=== PATIENT | female | born 1965 | race Caucasian/White ===

== ENCOUNTER → 2023-10-25 16:16 | Outpatient (REF) | payer OTHER, SELFPAY | LOC: WDC 16:16 | PROVIDERS: ATTENDING PHYSICIAN Obstetrics & Gynecology; FAMILY PHYSICIAN Internal Medicine Geriatric Medicine | DX: Z12.31 Encounter for screening mammogram for malignant neoplasm of breast (principal) | CPT/HCPCS: 77063; 77067 ==

== ENCOUNTER 2023-12-15 06:08 | Day surgery (SDC) | payer OTHER, SELFPAY ==
[2023-12-15 06:47] VITALS: BMI 38.9
[2023-12-15 06:51] VITALS: BP 142/82
--- NOTE | 2023-12-15 06:56 | HP.FOC2 ---
Focused History & Physical
Chief Complaint
HPI:
Chief Complaint: Left lower quadrant subcutaneous lipoma
HPI / Indication for Planned Procedure: Patient is a 58-year-old female seen in outpatient surgical evaluation secondary to palpable mass left lower quadrant subcutaneous abdominal wall. Examination consistent with 67 cm soft lipomatous mass. She
presents today for scheduled surgical excision
Relevant Past Medical History: Other (Hemangioma of the liver, hyperlipidemia, lactose intolerance, sleep apnea, history of kidney stones, Crohn's disease, mitral regurgitation, pulmonary stenosis, history of glucose intolerance)
Relevant Social History: Negative
Relevant Family History: Negative
Relevant Past Surgical History: Positive for (, D&C)
Review of Systems
Review of Pertinent Systems: All Systems Negative
Medication
See Medication form for detailed medications: Yes
Medication List (including Herbals & OTC):
ibuprofen 600 mg tablet 600 mg PO Q6HPRN PRN pain #20 tabs 08/10/20
ezetimibe 10 mg tablet (Zetia) 10 mg PO DAILY 12/08/23
Medications Reviewed: Yes
Allergies and Reactions
Patient has Allergies: Yes
Noted Allergies and Reactions:
Allergy/AdvReac Type Severity Reaction Status Date / Time
adhesive tape Allergy Rash Verified 12/15/23 06:45
atorvastatin calcium Allergy Rash Verified 12/15/23 06:45
[From Lipitor]
Pertinent Physical Exam
All Other Systems: Negative
Head/Neck: Normal
Lungs: Normal
Heart: Normal
Abdomen: Other (Left lower quadrant soft lipomatous mass like area approximately 4 x 7 cm)
Extremities: Normal
Neurological: Normal
Diagnosis / Assessment
58-year-old female with presumed left lower quadrant subcutaneous lipomatous mass
Plan / Procedure
Excision left lower quadrant subcutaneous lipoma
Anesthesia/Sedation to be done by Anesthesia Provider: Yes
--- NOTE | 2023-12-15 06:59 | W.SUR.PREOP ---
Pre-Operative Surgical Note
-
I have examined this patient prior to the performance of the scheduled procedure.
The patient's condition is unchanged from the time of the current History and
Physical and the patient is able to undergo the scheduled procedure.
[2023-12-15] MEDS: TYLENOL 1000 MG PO (07:14)
[2023-12-15] MEDS: NORMOSOL-R/PLASMALYTE-A 1000 IV (07:14)
[2023-12-15 08:00] VITALS: BP 108/60
--- NOTE | 2023-12-15 08:06 | W.IMMPOSTOP ---
Addendum entered and electronically signed by Jorge Antoine MD 12/15/23 08:10:
#[id number]
Original Note:
Surgical Immed Post Op Note
-
Primary Surgeon: Elina
Assisting Surgeon: Nafisa Renae PA-c
Pre-op Diagnosis: Left lower quadrant abdominal subcutaneous lipoma
Post-op Diagnosis: Left lower quadrant abdominal subcutaneous lipoma, 7 cm
Procedure Performed: Excision left lower quadrant subcutaneous abdominal lipoma
Anesthesia Type: MAC +1% lido/0.25% Marcaine
Specimen / Cultures: Lipoma
Estimated Blood Loss: 4 mL
Complications: None immediate
Operative Findings: Lobulated but well encapsulated subcutaneous lipomatous mass 7 x 4 cm consistent with preoperative ultrasound imaging. Excised in its entirety.
[2023-12-15 08:15] VITALS: BP 105/83
[2023-12-15 08:30] VITALS: BP 108/65
== END 2023-12-15 08:50 | disposition home or self-care (01) ==
LOC: SDS 06:08
PROVIDERS: ATTENDING PHYSICIAN Surgery
DX: D17.1 Benign lipomatous neoplasm of skin and subcutaneous tissue of trunk (principal)
CPT/HCPCS: 22903; 12032; 88304

== ENCOUNTER → 2023-12-21 12:47 | Outpatient (REF) | payer OTHER, SELFPAY | LOC: WDC 12:47 | PROVIDERS: ATTENDING PHYSICIAN Nurse Practitioner Obstetrics & Gynecology; FAMILY PHYSICIAN Internal Medicine Geriatric Medicine | DX: Z12.31 Encounter for screening mammogram for malignant neoplasm of breast (principal) | CPT/HCPCS: 76641 ==

== ENCOUNTER → 2023-12-25 07:00 | Outpatient (REF) | payer OTHER, SELFPAY | LOC: HWRAD 07:00 | PROVIDERS: ATTENDING PHYSICIAN Internal Medicine Gastroenterology; FAMILY PHYSICIAN Internal Medicine Geriatric Medicine | DX: K76.0 Fatty (change of) liver, not elsewhere classified (principal) | CPT/HCPCS: 76700 ==

== ENCOUNTER → 2024-07-04 13:47 | Outpatient (REF) | payer OTHER, SELFPAY | LOC: WDC 13:47 | PROVIDERS: ATTENDING PHYSICIAN Nurse Practitioner Acute Care; FAMILY PHYSICIAN Family Medicine | DX: R92.8 Other abnormal and inconclusive findings on diagnostic imaging of breast (principal) | CPT/HCPCS: 76642 ==

== ENCOUNTER → 2024-10-25 09:35 | Outpatient (REF) | payer OTHER, SELFPAY | LOC: HWWDC 09:35 | PROVIDERS: ATTENDING PHYSICIAN Nurse Practitioner Obstetrics & Gynecology; FAMILY PHYSICIAN Internal Medicine Geriatric Medicine | DX: Z12.31 Encounter for screening mammogram for malignant neoplasm of breast (principal) | CPT/HCPCS: 77063; 77067 ==

== ENCOUNTER → 2024-12-25 07:13 | Outpatient (REF) | payer OTHER, SELFPAY | LOC: HWRAD 07:13 | PROVIDERS: ATTENDING PHYSICIAN Internal Medicine Gastroenterology; FAMILY PHYSICIAN Internal Medicine Geriatric Medicine | DX: K76.0 Fatty (change of) liver, not elsewhere classified (principal) | CPT/HCPCS: 76700 ==

== ENCOUNTER → 2025-02-07 15:43 | Outpatient (REF) | payer OTHER, SELFPAY | LOC: HWRCS 15:43 | PROVIDERS: ATTENDING PHYSICIAN Internal Medicine Cardiovascular Disease; FAMILY PHYSICIAN Family Medicine | DX: Q22.1 Congenital pulmonary valve stenosis (principal); E83.118 Other hemochromatosis | CPT/HCPCS: 93306 ==